=== PATIENT | female | born 2000 | race Caucasian/White ===

== ENCOUNTER 2020-02-07 12:36 | Emergency (ER) | payer OTHER ==
--- NOTE | 2020-02-07 13:20 | ED Physician Documentation ---
PD HPI OPHTHO - Stated complaint Stated Complaint: LT EYE SWELLING - Chief complaint Chief Complaint: Heent - History obtained from History obtained from: Patient - History of Present Illness Timing - onset: How many days ago (5) Timing - duration: Days (5 days of some tenderness left upper eyelid laterally. NO FB nor eye discomfort per se. Feeling it on eyelid.) Timing - details: Gradual onset, Still present (increased tender and swelling today.), Waxing and waning Location: Left Quality / character: Aching. No: Itching Associated symptoms: Swelling (today, of upper eyelid), Tearing, Matting (mild in mornings). No: Redness, FB sensation Contributing factors: Wears glasses. No: Recent URI, FB, Wears contacts Similar symptoms before: Has not had sx before Review of Systems Constitutional: denies: Fever, Chills Eyes: denies: Photophobia Ears: denies: Ear pain Nose: denies: Rhinorrhea / runny nose, Congestion Throat: denies: Sore throat Respiratory: denies: Cough PD PAST MEDICAL HISTORY - Past Medical History Respiratory: None Endocrine/Autoimmune: None - Present Medications Home Medications: Ambulatory Orders Medication Instructions Recorded Confirmed Doxycycline Hyclate 100 mg PO BID #10 tablet. 02/07/20 Erythromycin Base [Erythromycin 1 applic OP QID #3.5 oint...g. 02/07/20 Ophthalmic Ointment] - Allergies Allergies/Adverse Reactions: Allergies Allergy/AdvReac Type Severity Reaction Status Date / Time No Known Drug Allergies Allergy Verified 02/07/20 13:08 PD ED PE NORMAL - Vitals Vital signs reviewed: Yes - General General: Alert and oriented X 3, No acute distress, Well developed/nourished - HEENT HEENT: PERRL, EOMI, Other (normal eye exam on surface and anterior chamber normal. NO FB under lid. There is some swelling lateral upper eyelid without lump. Seems to be tender in lacrimal gland area. Not red. ) Results - Vitals Vitals: Vital Signs - 24 hr 02/07/20 02/07/20 13:02 14:04 Temperature 36.3 C L Heart Rate 104 H 96 Respiratory 16 18 Rate Blood Pressure 120/79 136/85 H O2 Saturation 99 97 Oxygen O2 Source Room air Departure - Departure Disposition: 01 Home, Self Care Clinical Impression: Infection of lacrimal gland Condition: Stable Record reviewed to determine appropriate education?: Yes Prescriptions: Doxycycline Hyclate 100 mg PO BID #10 tablet. Erythromycin Base [Erythromycin Ophthalmic Ointment] 1 applic OP QID #3.5 oint...g. Comments: This sounds likely to be an infection of the lacrimal gland in the eyelid. Warm moist compresses and gentle massage from lateral upper down in a few times a day. Also antibiotic eye ointment 3-4 times a day for the next several days and the doxycycline oral antibiotic. Use ibuprofen or naproxen if needed for pain or discomfort and can help with inflammation as well. Recheck if not improved well over the next several days. Discharge Date/Time: 02/07/20 14:06
[2020-02-07] MEDS ORDERED: DOXYCYCLINE 100 MG TABLET PO STA (13:46)
[2020-02-07] MEDS ORDERED: ERYTHROMYCIN OPHTH OINT 1 GM TUBE LEFTEYE STA (13:46)
[2020-02-07 14:04] VITALS: BP 136/85
== END 2020-02-07 14:06 | disposition home or self-care (01) ==
LOC: ED 12:36
DX: H04.002 Unspecified dacryoadenitis, left lacrimal gland (principal)
CPT/HCPCS: 99282; 99283; A9270; J3490